=== PATIENT | female | born 1930 | race Asian ===

== ENCOUNTER 2018-01-02 17:32 | Emergency (ER) | payer MEDICARE, OTHER ==
[~2018-01-02] VITALS: Ht 147.3 cm; Wt 54.4 kg
[~2018-01-02 17:32] MED LIST: ASPI325; ASPI81CH; COLE625 PO; DIPATR PO; EZET10; LOSHYD; PROM25 PO; SPIR25
[2018-01-02] MEDS ORDERED: BENADRYL25 MG PO (18:28)
== END 2018-01-02 18:54 | disposition home or self-care (01) ==
LOC: ER 17:32
DX: S50.861A Insect bite (nonvenomous) of right forearm, initial encounter (principal); W57.XXXA Bitten or stung by nonvenomous insect and other nonvenomous arthropods, initial encounter
CPT/HCPCS: 99283; Q0163